=== PATIENT | male | born 1985 | race Caucasian/White ===

== ENCOUNTER 2022-03-25 08:58 | Inpatient (IN) | payer OTHER ==
[2022-03-25 11:16] VITALS: BMI 31.8
[2022-03-25] MEDS ORDERED: BENZOCAINE/MENTHOL (CHLORASEPTIC ) LOZENGE MM PRN (11:23)
[2022-03-25] MEDS ORDERED: ACETAMINOPHEN 325 MG TABLET (FP) PO PRN ×2 (11:23)
[2022-03-25] MEDS ORDERED: chlordiazePOXIDE HCL 25 MG CAPSULE PO PRN (11:23)
[2022-03-25] MEDS ORDERED: MAGNESIUM HYDROX 2400MG/30ML ORAL SUSPENSION 30 ML CUP PO PRN (11:23)
[2022-03-25] MEDS ORDERED: IBUPROFEN 400 MG TABLET (FP) PO PRN (11:23)
[2022-03-25] MEDS ORDERED: BISMUTH SUBSALICYLATE 262 MG/15 ML BTL PO PRN (11:23)
[2022-03-25] MEDS ORDERED: MAGNESIUM CITRATE 300 ML BOTTLE PO PRN (11:23)
[2022-03-25] MEDS ORDERED: LOPERAMIDE HCL 2 MG CAPSULE PO PRN (11:23)
[2022-03-25] MEDS ORDERED: NALOXONE HCL 0.4 MG/ML VIAL IM PRN (11:23)
[2022-03-25] MEDS ORDERED: MAG HYDROX/AL HYDROX/SIMETH 30 ML UNIT-DOSE CUP PO PRN (11:23)
[2022-03-25] MEDS ORDERED: ONDANSETRON *ODT* 4 MG TABLET SL PRN (11:23)
[2022-03-25] MEDS ORDERED: DICYCLOMINE HCL 10 MG CAPSULE PO PRN (11:23)
[2022-03-25] MEDS ORDERED: METHOCARBAMOL 500 MG TABLET PO PRN (11:23)
[2022-03-25] MEDS: PRENATAL VITAMINS W/ FOLIC ACID TABLET (FP) PO SCH (13:34)
[2022-03-25] MEDS: hydrOXYzine PAMOATE 25 MG CAPSULE (FP) PO SCH ×3 (13:34→22:43)
[2022-03-25] MEDS: chlordiazePOXIDE HCL 25 MG CAPSULE PO SCH ×2 (19:03→22:44)
[2022-03-25] MEDS: MELATONIN 5 MG TABLETS PO SCH (22:43)
[2022-03-25] MEDS: THIAMINE HCL 100 MG TABLET (FP) PO SCH (22:44)
[2022-03-26] MEDS: hydrOXYzine PAMOATE 25 MG CAPSULE (FP) PO SCH ×5 (06:44→22:38)
[2022-03-26] MEDS: chlordiazePOXIDE HCL 25 MG CAPSULE PO SCH ×4 (06:45→22:39)
[2022-03-26] MEDS: PRENATAL VITAMINS W/ FOLIC ACID TABLET (FP) PO SCH (10:39)
[2022-03-26 11:12] LABS: HEMATOCRIT 41.4 % (35.4-49); HEMOGLOBIN 14.1 GM/dL (11.7-16.9); MCH 34.3 pg (25.7-33.7); MCHC 33.9 g/dl (32.0-35.9); MEAN PLT VOLUME 9.8 fl (7.5-11.1); PLATELET COUNT 260 10^3/uL (134-434); RDW 14.5 % (11.9-15.9)
[2022-03-26 11:38] LABS: CALCIUM 9.1 mg/dL (8.5-10.1)
[2022-03-26 11:39] LABS: ALBUMIN 3.8 g/dl (3.4-5.0); BLOOD UREA NITROGEN 8.4 mg/dL (7-18)
[2022-03-26 11:42] LABS: CREATININE 0.8 mg/dL (0.55-1.3)
[2022-03-26 11:43] LABS: BILIRUBIN,TOTAL 0.4 mg/dL (0.2-1); TOT PROT 7.4 g/dl (6.4-8.2)
[2022-03-26] MEDS: NICOTINE 10 MG CARTRIDGE (INHALER) IH PRN (20:51)
[2022-03-26] MEDS: MELATONIN 5 MG TABLETS PO SCH (22:38)
[2022-03-26] MEDS: THIAMINE HCL 100 MG TABLET (FP) PO SCH (22:38)
[2022-03-27] MEDS: hydrOXYzine PAMOATE 25 MG CAPSULE (FP) PO SCH ×5 (06:48→22:41)
[2022-03-27] MEDS: chlordiazePOXIDE HCL 25 MG CAPSULE PO SCH ×4 (06:49→22:41)
[2022-03-27] MEDS: PRENATAL VITAMINS W/ FOLIC ACID TABLET (FP) PO SCH (10:31)
[2022-03-27 17:06] LABS: SARS-CoV-2 NAA Not Detected (Not Detected)
[2022-03-27] MEDS: NICOTINE 10 MG CARTRIDGE (INHALER) IH PRN (22:40)
[2022-03-27] MEDS: MELATONIN 5 MG TABLETS PO SCH (22:40)
[2022-03-27] MEDS: THIAMINE HCL 100 MG TABLET (FP) PO SCH (22:41)
[2022-03-28] MEDS ORDERED: chlordiazePOXIDE HCL 10 MG CAPSULE PO PRN
[2022-03-28] MEDS: chlordiazePOXIDE HCL 10 MG CAPSULE PO SCH ×4 (05:46→22:27)
[2022-03-28] MEDS: hydrOXYzine PAMOATE 25 MG CAPSULE (FP) PO SCH ×5 (05:46→22:27)
[2022-03-28] MEDS: PRENATAL VITAMINS W/ FOLIC ACID TABLET (FP) PO SCH (10:27)
[2022-03-28] MEDS: NICOTINE 10 MG CARTRIDGE (INHALER) IH PRN (14:16)
[2022-03-28] MEDS: THIAMINE HCL 100 MG TABLET (FP) PO SCH (22:27)
[2022-03-28] MEDS: MELATONIN 5 MG TABLETS PO SCH (22:27)
[2022-03-29] MEDS ORDERED: chlordiazePOXIDE HCL 10 MG CAPSULE PO SCH (05:00)
[2022-03-29] MEDS: hydrOXYzine PAMOATE 25 MG CAPSULE (FP) PO SCH ×2 (05:49→10:05)
[2022-03-29 06:26] VITALS: TEMP 97.3
[2022-03-29] MEDS: NICOTINE 10 MG CARTRIDGE (INHALER) IH PRN (07:14)
[2022-03-29 09:08] VITALS: BP 112/63; PULSE 88
[2022-03-29] MEDS: PRENATAL VITAMINS W/ FOLIC ACID TABLET (FP) PO SCH (10:05)
[2022-03-30] MEDS ORDERED: chlordiazePOXIDE HCL 10 MG CAPSULE PO ONE (05:00)
== END 2022-03-29 09:16 | disposition home or self-care (01) | DRG 775 ==
LOC: YASAS 08:58 → Y3N 12:18
PROVIDERS: ADMIT Allergy & Immunology; ATTEND Allergy & Immunology
PROC: HZ2ZZZZ Detoxification Services for Substance Abuse Treatment (ICD-10-PCS; principal; 2022-03-25)
DX: F10.230 Alcohol dependence with withdrawal, uncomplicated (principal); F17.210 Nicotine dependence, cigarettes, uncomplicated; F41.9 Anxiety disorder, unspecified; R00.2 Palpitations
CPT/HCPCS: 36415; 80053; 85027; 86780; 87811; 93005; 93010; C9803-CS; U0003; U0005